=== PATIENT | male | born 1950 | race Caucasian/White ===

== ENCOUNTER 2022-12-05 12:23 | Outpatient (CLI) | payer MEDICARE, SELFPAY ==
--- NOTE | ~2022-12-05 | PE_ITS ---
EXAMINATION: PET_PETPSMAST_PT DATE: 12/05/2022 15:07 INDICATION: Malignant neoplasm of the prostate TECHNIQUE: 8.832 mCi of pipflufolastat F-18 (18-F-DCFPyL) was administered i.v. Low dose computed to mography (CT) images were acquired from the base of the brain to the base of the brain to the proxima l thighs for attenuation correction and anatomic localization. Positron emission tomography (PET) brenton ges were acquired in the same distribution beginning 95 minutes after injection. Images including fus ed PET/CT images were reconstructed in axial, coronal, and sagittal planes. Automated exposure contro l technique was employed. The dose-length product was 785.61mGy-cm. COMPARISON: None FINDINGS: Head/neck: Typical pattern of symmetric physiologic increased activity in the lacrimal, parotid and submandibula r glands as well as along the mucosa of the oropharynx, nasopharynx and to lesser degree the esophagu s. No pathologically enlarged cervical lymphadenopathy or suspicious foci of increased uptake in the visualized head or neck. Chest: Mild atelectasis at the bilateral lung bases. Small calcified right upper lobe nodule consistent with old granulomatous disease. No other suspicious pulmonary nodules, pneumonia or pleural effusion. Mil d cardiomegaly. No pericardial effusion. Fusiform ascending thoracic aortic aneurysm measuring up to 4.4 cm. No pathologically pelvic lymphadenopathy. Thoracic lymphadenopathy. Abdomen/pelvis/proximal thighs: Physiologic renal accumulation and excretion of activity in the kidneys, bladder and along portions o f ureters. 4.4 cm low-attenuation exophytic cyst arising from the anterior left kidney. Normal degree and slightly heterogenous pattern of increased uptake throughout the liver and spleen without radiol ogic correlate or dominant PSMA avid lesion. The gallbladder, pancreas and bilateral adrenal glands a re normal. Moderate uptake scattered throughout the bowels with typical duodenal and proximal jejunal predominance and without radiologic correlate, also likely physiologic. Prostatomegaly. There is het erogeneous activity in the prostate with at least 3 nodular regions of focal increased PSA uptake wit h maximal SUV of 4.2 anteriorly near the midline and with maximal SUV of 4.1 at both the left and rig ht posterior inferior aspects of the prostate. 1.8 x 0.5 cm left inguinal lymph node with mild uptake with maximal SUV of 2.4 which is comparable to the level in the blood pool of the adjacent common fe moral artery and vein. No other suspicious enlarged or PSV avid pelvic or retroperitoneal lymphadenop athy. Musculoskeletal: There are a few tiny foci of uptake along slightly lower intensity linear uptake in the soft tissues at the dorsum of the right hand which is the site of injection and which likely represents small amou nt of extravasated activity and lymphatic uptake. There are a couple small foci of minimal relative i ncreased uptake at the L1 and L2 vertebral bodies with maximal SUV of 3.4 and 3.3 respectively, still not significantly elevated relative to the blood pool and liver activity and without evident corresp onding lytic or blastic bone lesions. Tiny foci of minimal uptake are seen along multiple neural fora clive from the cervical through the thoracic and lumbar spine most likely physiologic uptake associate d with the dorsal root ganglia. No uptake associated with an 8 mm densely sclerotic likely bone islan d at the T8 vertebral body. No other suspicious lytic, blastic or PSMA avid bone lesions. IMPRESSION: 1. 3 focal regions of mild increased uptake in the inferior prostate consistent with reported history of prostate cancer. 2. No significantly PSMA avid lesions to suggest metastatic disease. Reviewed, dictated and finalized at location A. Electronically signed by Rigo Torres M.D.
== END 2022-12-05 12:24 | disposition home or self-care (01) ==
PROVIDERS: Visit Provider Urology
DX: C61 Malignant neoplasm of prostate (principal)
CPT/HCPCS: 78815; A9595